=== PATIENT | male | born 2000 | race Caucasian/White ===

== ENCOUNTER → 2023-04-24 12:24 | Outpatient (CLI) | payer BC, SELFPAY ==
[2023-04-24 13:38] LABS: Influenza A - CEPHEID Flu A NEGATIVE (NEGATIVE); Influenza B - CEPHEID Flu B NEGATIVE (NEGATIVE); Respiratory Syncytial Virus Negative (Negative)
[2023-04-24 13:41] LABS: COVID-19 CEPHEID 4-PLEX PCR Negative (Negative)
== END ==
PROVIDERS: Visit Provider Physician Assistant
DX: J02.9 Acute pharyngitis, unspecified (principal); R50.9 Fever, unspecified
CPT/HCPCS: 0241U; 87070

== ENCOUNTER → 2024-09-21 14:27 | Outpatient (CLI) | payer BC, SELFPAY ==
--- NOTE | 2024-09-21 14:28 | DI.RAD.S_ITS ---
PROCEDURE: XR FINGER RT MIN 2V INDICATIONS: Slammed thumb in door TECHNIQUE: AP hand, 2 views of the 1st finger (s) acquired. COMPARISON: None. FINDINGS: Bones: No fracture identified. There is a 9 mm bone island in the distal 1st phalanx. Joints: The joint spaces are normal in width and alignment without arthritic change. Soft tissues: No soft tissue abnormality. IMPRESSION: No fracture or other significant abnormality Dictated by: Arnel Conley M.D. on 09/22/2024 at 10:38 Approved by: Arnel Conley M.D. on 09/22/2024 at 10:39
== END ==
PROVIDERS: Referring Provider Nurse Practitioner Family; Visit Provider Nurse Practitioner Family
DX: S60.00XA Contusion of unspecified finger without damage to nail, initial encounter (principal); W23.2XXA Caught, crushed, jammed or pinched between a moving and stationary object, initial encounter
CPT/HCPCS: 73140